=== PATIENT | female | born 1965 | race Caucasian/White ===

== ENCOUNTER 2020-07-23 14:41 | Emergency (ER) | payer MEDICARE, MEDICAID, SELFPAY ==
[2020-07-23 14:42] VITALS: BP 115/83; PULSE 74; RESP 16; TEMP 33; O2SAT 100; BMI 26.6
[2020-07-23 15:05] LABS: Bedside Glucose 73 mg/dL (70-110)
--- NOTE | 2020-07-23 15:05 | ED.DCSUM_ITS ---
History of Present Illness Chief Complaint: Alt LOC Informant: Patient, Family, SNF Narrative: Patient is a 54-year-old female with history of type 1 diabetes mellitus, anoxic brain injury and frequent falls presenting after an episode of altered mental status. Patient was at her senior living and was found to be altered. Her blood sugar was 54. Patient was given IM glucagon and then oral glucose. She had return of mentation and her glucose went up to 85 on recheck. Patient states she feels fine now. Mother is concerned because she states the patient has been eating for the past few weeks. Patient had multiple ED visits throughout the area including [place] with no answers. No report of any fever, vomiting, abdominal pain or urinary symptoms. Patient does have a history of overactive bladder which is unchanged. No other complaints at this time. Past Medical History - Allergies and Home Meds Allergies/Adverse Reactions: Allergies Sulfa (Sulfonamide Antibiotics) Allergy (Verified 07/23/20 15:12) Hives sulfasalazine Allergy (Verified 07/23/20 15:12) Other Primary Care Physician: Nica Crespo [Primary Care Provider] - Past Medical History: - - Type 1 diabetes mellitus, dementia, anoxic brain injury, overactive bladder, GERD, Surgical History: noncontributory Lives: Care Home Smoking Status: Never smoker Review of Systems General: Reports: - - Decreased appetite. Denies: Chills, Fever, Sweats Eyes: Denies: Visual changes - bilaterally, Diplopia ENT: Denies: Rhinorrhea, Sore throat Cardiovascular: Denies: Chest pain, Palpitations Respiratory: Denies: Dyspnea, Cough, Dyspnea on exertion Gastrointestinal: Denies: Abdominal pain, Nausea, Vomiting, Diarrhea Genitourinary: Denies: Dysuria, Hematuria, Frequency Musculoskeletal: Denies: Back pain, Extremity Pain Skin: Denies: Rash, Wounds Neurological: Reports: - - Confusion-resolved. Denies: Headache, Weakness, Numbness Physical Exam Vital Signs/Narrative: Vital Signs Temp Pulse Resp BP Pulse Ox 07/23/20 14:42 91.4 F L 74 16 115/83 H 100 Inital Vital Signs reviewed: Yes General: Well nourished, Well developed, No Acute Distress Head: Normocephalic, Atraumatic Eyes: Perrl, EOMI ENT: Moist mucous membranes, No rhinorrhea Neck: Supple, Nontender, No JVD Cardiovascular: Regular rate, Regular rhythm, No murmurs Respiratory: No distress, CTA bilaterally, Chest nontender Abdomen: Soft, Nontender, Nondistended, Normal bowel sounds Back: Nontender, Normal Inspection Extremities: Nontender, No edema Skin: Normal color, No rash Neurological: Alert, Oriented x3, Cranial nerves II-XII grossly intact, Normal Strength, Normal Sensation Psychological: Normal affect, Normal Mood Diagnostic/Tx/Re-eval Chest X-Ray - ED: 1 View, Read by ED Physician, Read by Radiologist, No Acute Disease Clinical Impression(s) from Imaging Studies Chest X-Ray 07/23/20 15:15 IMPRESSION: No acute abnormality is seen. Electronically Signed: Griffin Downey MD at 15:32 EDT , Service support , Laboratory Data 07/23/20 07/23/20 07/23/20 14:59 15:15 15:15 WBC 11.9 H RBC 4.40 Hgb 12.9 Hct 41.3 MCV 93.9 MCH 29.3 MCHC 31.2 L RDW Std Deviation 43.3 RDW Coeff of Ti 12.5 Plt Count 449 MPV 10.0 Immature Gran % (Auto) 0.300 Neut % (Auto) 85.2 H Lymph % (Auto) 8.5 L [place] % (Auto) 4.2 Eos % (Auto) 1.0 Baso % (Auto) 0.8 Absolute Neuts (auto) 10.2 H Absolute Lymphs (auto) 1.01 Nucleated RBC % 0 Sodium 135 L Potassium 3.9 Chloride 100 Carbon Dioxide 30.0 Anion Gap 5 BUN 13 Creatinine 0.92 Estim Creat Clear Calc 64.68 Est GFR (MDRD) Af Amer 81 Est GFR (MDRD) Non-Af 67 BUN/Creatinine Ratio 14.1 Glucose 145 H Calcium 9.5 Total Bilirubin 0.40 AST 32 ALT 27 Alkaline Phosphatase 208 H Total Protein 7.7 Albumin 3.4 Globulin 4.3 H Albumin/Globulin Ratio 0.8 L Urine Color Urine Clarity Urine pH Ur Specific [place] Urine Protein Urine Glucose (UA) Urine Ketones Urine Occult Blood Urine Nitrite Urine Bilirubin Urine Urobilinogen Ur Leukocyte Esterase Urine RBC Urine WBC Ur Squamous Epith Cells Urine Bacteria Urine Mucus POC Glucose 73 07/23/20 07/23/20 16:01 16:45 WBC RBC Hgb Hct MCV MCH MCHC RDW Std Deviation RDW Coeff of Ti Plt Count MPV Immature Gran % (Auto) Neut % (Auto) Lymph % (Auto) [place] % (Auto) Eos % (Auto) Baso % (Auto) Absolute Neuts (auto) Absolute Lymphs (auto) Nucleated RBC % Sodium Potassium Chloride Carbon Dioxide Anion Gap BUN Creatinine Estim Creat Clear Calc Est GFR (MDRD) Af Amer Est GFR (MDRD) Non-Af BUN/Creatinine Ratio Glucose Calcium Total Bilirubin AST ALT Alkaline Phosphatase Total Protein Albumin Globulin Albumin/Globulin Ratio Urine Color Yellow Urine Clarity Sl. Cloudy Urine pH 5.0 Ur Specific [place] 1.015 Urine Protein 15 H Urine Glucose (UA) Normal Urine Ketones Negative Urine Occult Blood 25 H Urine Nitrite Negative Urine Bilirubin Negative Urine Urobilinogen Normal Ur Leukocyte Esterase 100 H Urine RBC 0-5 SEEN Urine WBC 25-50 SEEN Ur Squamous Epith Cells 0 SEEN Urine Bacteria 1+ Urine Mucus 0 SEEN POC Glucose 139 H - Medical Decision Making Evaluated for an episode of hypoglycemia that occurred in nursing facility. She is a type I diabetic and apparently had decreased oral intake. Mother is concerned because she really has not been eating much. Patient eating in the ER and well-appearing. She has no complaints. Her history is somewhat limited as she does have a history of anoxic brain injury. Given that she did have a new onset of hypoglycemia I did check basic lab work, chest x-ray and urine looking for signs of infection or another cause of hypoglycemia. Patient is found to have UTI. She started on Keflex and urine culture sent. She will be discharged back to facility as her blood sugar remained stable in the ER. Mother and patient counseled signs symptoms require return to the emergency room. They verbalized agreement understand this plan. Patient discharged home in stable condition. ED Disposition - Plan for ED Patient: Disposition: Shelter Facility Diagnosis: UTI (urinary tract infection), Hypoglycemia due to type 1 diabetes mellitus Instructions: ED Diabetic Insulin Reaction, ED Bladder Infection, Female (Adult) Prescriptions: Cephalexin [Keflex] 500 mg PO Q12 #10 capsule Prescription Printed Referrals: Nica Crespo [Primary Care Provider] - Additional Instructions: Make sure you eat at regular intervals to prevent low blood sugar.
--- NOTE | 2020-07-23 15:15 | RAD_ITS ---
STUDY: X-RAY CHEST REASON FOR EXAM: Female, 54 years old. AMS . Low blood sugar. TECHNIQUE: Single AP portable view of the chest. COMPARISON: None. FINDINGS: The lungs are clear and expanded. There is no demonstrated pleural abnormality. Normal size heart. Normal mediastinum and kevin. Normal visualized pulmonary arteries. Normal visualized aortic arch and descending thoracic aorta. Normal visualized thoracic spine. Healed right rib fractures. There is no demonstrated abnormality of the visualized soft tissue structures of the upper abdomen. RAD/Chest 1 View (Portable) IMPRESSION: No acute abnormality is seen. Electronically Signed: Griffin Downey MD at 15:32 EDT , Service support ,
[2020-07-23 15:21] VITALS: BP 117/100; PULSE 76; RESP 16; O2SAT 100
[2020-07-23 15:22] LABS: Absolute Lymphocyte Count 1.01 X10^3/uL (0.83-4.51); Absolute Neutrophil Count 10.2 X10^3/uL (2.0-7.7); Basophil# 0.09 X10^3/uL; Basophil% 0.8 % (0-1); Eosinophil# 0.12 X10^3/uL; Hematocrit 41.3 % (37-47); Hemoglobin 12.9 g/dL (12.0-15.0); Lymphocyte # 1.01 X10^3/ul (0.83-4.51); Lymphocyte % 8.5 % (19-41); Mean Corp Hgb Conc 31.2 g/dL (32-36); Mean Corpuscular Hgb 29.3 pg (27.0-32.0); Mean Corpuscular Volume 93.9 fL (81-99); Monocyte% 4.2 % (0-10); NRBC Flagged by Analyzer 0 % (0-5); Neutrophil # 10.16 X10^3/uL (2.7-7.7); Neutrophil % 85.2 % (47-70); Platelet Count 449 K/mm3 (150-450); RBC Distribution Width CV 12.5 % (11.6-14.6); RBC Distribution Width SD 43.3 fl (35.1-43.9); White Blood Count 11.9 K/mm3 (4.4-11.0)
[2020-07-23 15:37] LABS: ALB/GLOB Ratio 0.8 RATIO (0.9-2.4); AST(SGOT) 32 U/L (15-37); Alanine Aminotransfer ALT/SGPT 27 U/L (13-56); Albumin, Serum 3.4 g/dL (3.2-5.0); Alkaline Phosphatase 208 U/L (45-117); Anion Gap 5 (5-15); BUN 13 mg/dL (7-18); BUN/Creat Ratio 14.1 RATIO (10-20); Calcium,Total 9.5 mg/dL (8.5-10.1); Chloride 100 mmol/L (98-107); Creatinine, Serum 0.92 mg/dL (0.55-1.02); EST Glomerular Filtration Rate 67 mL/min (>60); Est Glom Filt Rate - Afr Amer 81 mL/min (>60); Estimated Creatinine Clearance 64.68 ml/min; Globulin 4.3 g/dL (2.2-4.2); Glucose 145 mg/dL (74-106); Potassium 3.9 mmol/L (3.5-5.1); Protein, Total 7.7 g/dL (6.4-8.2); Sodium Level 135 mmol/L (136-145)
[2020-07-23 16:04] LABS: Mucous, Urine 0 SEEN /hpf (<or=2+); Squamous Epithelial Cells - UA 0 SEEN /hpf (5-10)
[2020-07-23 16:08] LABS: Color, Urine Yellow (Yellow); Glucose, Dipstick Normal (Normal); Ketone-Dipstick Negative (Negative); Leukocyte Esterase-Dipstick 100 /ul (Negative); Nitrite-Dipstick Negative (Negative); Occult Blood-Urine 25 /ul (Negative); Protein-Dipstick 15 mg/dl (Negative); Specific Gravity, Urine 1.015 (1.002-1.030); Urine Bilirubin Dipstick Negative (Negative); Urine Clarity Sl. Cloudy (Clear); Urine Urobilinogen Normal (Normal)
[2020-07-23 16:14] LABS: Red Blood Cells-Urine 0-5 SEEN /hpf (0-5); White Blood Cells 25-50 SEEN /hpf (0-5)
[2020-07-23 16:15] LABS: Bacteria 1+ /hpf (None Seen)
[2020-07-23 16:48] VITALS: TEMP 35.6
[2020-07-23 16:51] LABS: Bedside Glucose 139 mg/dL (70-110)
[2020-07-23] MEDS: Cephalexin 250 MG Capsule 500 MG PO (17:00)
[2020-07-23 17:29] VITALS: BP 136/84; PULSE 72; RESP 18; O2SAT 97
--- NOTE | 2020-07-23 17:33 | ED.RN ---
report was called to [facility], this nurse spoke with nadia shrestha. pt was d[facility]c [facility] back to [facility].
== END 2020-07-23 17:36 | disposition skilled nursing facility (03) ==
PROVIDERS: Emergency Provider Emergency Medicine; PCP Internal Medicine Geriatric Medicine
DX: N39.0 Urinary tract infection, site not specified (principal); E10.649 Type 1 diabetes mellitus with hypoglycemia without coma; K21.9 Gastro-esophageal reflux disease without esophagitis; Z79.4 Long term (current) use of insulin; Z79.899 Other long term (current) drug therapy
CPT/HCPCS: 71045; 80053; 81001; 82962; 85025; 87086; 87088; 99285; P9612; A4216